=== PATIENT | female | born 1985 | race Two or more races ===

== ENCOUNTER 2018-08-31 11:40 | Observation (INO) | payer MEDICAID ==
[~2018-08-31] VITALS: Ht 170.2 cm; Wt 77.6 kg
[2018-08-31] MEDS ORDERED: PREN-96 PO (12:39)
== END 2018-08-31 13:00 | disposition home or self-care (01) | DRG 566 ==
LOC: INTOOBSV 11:40 → TELE 11:40 → LDRP 12:11
PROVIDERS: ADMIT Obstetrics & Gynecology; ATTEND Obstetrics & Gynecology
DX: O62.9 Abnormality of forces of labor, unspecified (principal); F17.210 Nicotine dependence, cigarettes, uncomplicated; O99.332 Smoking (tobacco) complicating pregnancy, second trimester; Z3A.26 26 weeks gestation of pregnancy
CPT/HCPCS: 59025; 81002; G0378